=== PATIENT | male | born 1985 | race African-American/Black ===

== ENCOUNTER 2019-07-05 08:01 | Outpatient (RCR) | payer OTHER, SELFPAY ==
--- NOTE | 2019-06-07 17:06 | WPDWOUNDNOTE ---
Wound Care Note Date/Time: 06/07/19 17:06 Wound history: Right anterior tibial open wound probably from insect bite although exact etiology unclear. Has been using silver gel and Mepilex with good improvement. Mepilex was pretty stuck to the wound today. Wound depth: Very superficial Surrounding tissue appearance: Healthy Percentage granulation tissue: 100 Dressings: Start just putting Band-Aid over the wound and stopping the silver gel. Hopefully this will scab and heal. Will recheck in 3 weeks. Assessment and Plan Assessment and plan (1) Open wound knee/leg with tendon involvment: Code(s): S81.009A - Unspecified open wound, unspecified knee, initial encounter; S81.809A - Unspecified open wound, unspecified lower leg, initial encounter; S91.009A - Unspecified open wound, unspecified ankle, initial encounter Status: Acute Assessment and Plan: Continues to improve slowly. Now is just 5-6 mm in size and no depth at all. Start using a Band-Aid dressing and try to allow this to scab over and heal. Recheck again in wound clinic in 3 weeks.
== END 2019-08-27 07:57 | disposition home or self-care (01) ==
LOC: ANHWOC 08:01
PROVIDERS: PCP Emergency Medicine; Visit Provider Surgery
DX: S81.801D Unspecified open wound, right lower leg, subsequent encounter (principal)
CPT/HCPCS: 99212; G0463

== ENCOUNTER 2019-08-20 13:48 | Outpatient (CLI) | payer OTHER, SELFPAY ==
--- NOTE | ~2019-08-20 | CT_ITS ---
EXAMINATION: CT ankle RT wo con, CT foot RT wo con DATE: 08/20/2019 14:33 INDICATION: Right foot and ankle pain TECHNIQUE: High resolution computed tomography (CT) of the right foot and ankle was performed without intravenous contrast. Additional sagittal and coronal reconstructions were performed. Automated expo sure control and iterative reconstruction technique were employed. The dose-length product was 408.07 mGy-cm. COMPARISON: Radiographs dated 08/15/2019 FINDINGS: Bone alignment is normal at the right foot and ankle. No fracture. Mild tibiotalar osteoarthritis wit h anterior predominant nonuniform joint space narrowing. There is mild subarticular lucency and scler osis along the posterolateral margin of the talar dome which could be related to overlying chondromal acia or a developing osteochondral lesion. Additional mild osteoarthritis at the navicular cuneiform and first metatarsophalangeal joints. Minimal osteoarthritis at the tarsal metatarsal joints. No elza ical erosions. Soft tissues are unremarkable. No ankle joint effusion. IMPRESSION: 1. Mild polyarticular osteoarthritis including at the tibiotalar joint and there is suggestion of pos sible developing osteochondral lesion at the posterolateral rim of the talar dome. Reviewed, dictated and finalized at location A. IT PRODUCT ANALYST IMPRESSION: 1. Mild polyarticular osteoarthritis including at the tibiotalar joint and ther e is suggestion of possible developing osteochondral lesion at the posterolater al rim of the talar dome.
== END 2019-08-20 13:49 | disposition home or self-care (01) ==
PROVIDERS: PCP Emergency Medicine; Visit Provider Orthopaedic Surgery
DX: M19.071 Primary osteoarthritis, right ankle and foot (principal)
CPT/HCPCS: 73700

== ENCOUNTER 2019-10-04 08:00 | Outpatient (RCR) | payer OTHER, SELFPAY ==
--- NOTE | 2019-10-04 09:20 | PTOPEVAL ---
PHYSICAL THERAPY EVALUATION AND PLAN OF CARE 10-04-2019 The PT evaluation was completed and his plan of treatment is established for 2x/week for 4 weeks. Thank you for referring Nura to [facility]. Please review, sign, date and return this plan of care [facility]. I agree with and certify that the following plan of care is medically necessary. Referring Physician Date Attending Provider: Christopher Munoz MD *PT Outpatient Evaluation Start: 10/04/19 08:15 Document 10/04/19 08:05 ALEXY (Rec: 10/04/19 09:13 ALEXY [id number]) Outpatient Past Medical History Neurological History Hx Neurological Disorders No Significant History Cardiovascular History Hx Hypertension Yes: monitoring little high Respiratory History Hx Respiratory Disorders No Significant History Gastrointestinal History Hx Gastrointestinal Disorders No Significant History Genitourinary History Hx Genitourinary Disorders No Significant History Musculoskeletal History Hx Back Pain Yes: chronic back pain/issues intermittent pain Hx Other Musculoskeletal Disorders Yes: this incident of R ankle pain; flat feet Hematological History Hx Anemia Yes: slight, to have EDG to check it Endocrine History Hx Endocrine Disorders No Significant History HEENT History Hx HEENT Disorders No Significant History Psychosocial History Hx Anxiety Yes Other History Hx Other Surgeries Yes: R anterior castillo spider bite with debride tissue Evaluation Information Problem Diagnosis R ankle/foot pain, tarsal coalition Onset 05-01-19 Subjective Information walking and turning, ankle Query Text:As Reported By Patient/ squishy ; had CT scan; tried Family sera wrap- made worse; wearing high top boot helps pain; unable to recall any trauma or injury to foot/ankle, no strains, falls; Diagnostic Tests Other Tests For This Problem Yes: CT-fibrous coalition,deg changes:calcan-navic,talar-navic,calc-cuboid Previous Treatments Previous Treatments For This Problem no PT for ankle/foot Prior Level of Function Activity Level (Last 3 Months) 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
--- NOTE | 2019-10-23 11:25 | PCPTNOTE ---
PHYSICAL THERAPY DISCHARGE 10-23-2019 Attending Provider: Christopher Munoz MD Patient:Nura Stewart Date of :1985 Mr. Stewart has not returned for any further treatments since the PT evaluation on 10/04/2019, for the diagnosis of R ankle/foot pain. Therefore he will be discharged at this time. The goals were not addressed. Thank you for [facility] Nura to [facility]. Please review, sign, date and return this discharge summary NAS. I have been updated about the patient's current status and I agree with discharge from the above service at this time. Referring Physician Date
== END 2019-12-18 12:57 | disposition home or self-care (01) ==
LOC: ANHPT 08:00
PROVIDERS: PCP Emergency Medicine; Visit Provider Orthopaedic Surgery
DX: M25.571 Pain in right ankle and joints of right foot (principal); M79.671 Pain in right foot
CPT/HCPCS: 97110; 97161

== ENCOUNTER 2020-05-26 13:45 | Outpatient (RCR) | payer OTHER, SELFPAY ==
--- NOTE | 2020-03-19 13:29 | PTOPEVAL ---
PHYSICAL THERAPY EVALUATION AND PLAN OF CARE 03-19-2020 Thank you for referring Nura Stewart to [facility].? He is scheduled to be seen for therapy? 2 x/week for 4 weeks. Please review, sign, date and return this plan of care NAS. I agree with and certify that the following plan of care is medically necessary. Referring Physician Date Attending Provider: Christopher Munoz MD *PT Outpatient Evaluation Start: 03/19/20 12:37 Document 03/19/20 12:30 ALEXY (Rec: 03/19/20 13:29 ALEXY [id number]) Outpatient Past Medical History Past Medical History Source of Past Medical History Patient Neurological History Hx Neurological Disorders No Significant History Cardiovascular History Hx Hypertension Yes: not taking any meds Respiratory History Hx Respiratory Disorders No Significant History Gastrointestinal History Hx Gastrointestinal Disorders No Significant History Genitourinary History Hx Genitourinary Disorders No Significant History Musculoskeletal History Hx Back Pain Yes: chronic back pain/issues intermittent pain Hx Other Musculoskeletal Disorders Yes: this incident of R ankle pain; flat feet Hematological History Hx Anemia Yes: slight, recent bloodwork to check it Endocrine History Hx Endocrine Disorders No Significant History HEENT History Hx HEENT Disorders No Significant History Psychosocial History Hx Anxiety Yes Other History Hx Other Surgeries Yes: R anterior castillo spider bite with debride tissue Evaluation Information Problem Diagnosis R foot pain, plantar faciitis, achilles tendon Onset Apr 2019 Subjective Information no trauma or injury to ankle/ Query Text:As Reported By Patient/ foot; just started hurting; Family Diagnostic Tests X-Rays For This Problem Yes Other Tests For This Problem Yes: CT scan in September Previous Treatments Previous Treatments For This Problem had PT eval, then coronavirus started and he did not come for treatment Prior Level of Function Activity Level (Last 3 Months) 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
--- NOTE | 2020-04-17 09:22 | PCPTNOTE ---
pt did not show for today's reeval. Called pt, he stated forgot about appt ; stated he was feeling fine, went to work yesterday then pain hit again with standing and walking; he called dr and has flanagan 04-23-20 to see Discussed with him at dr flanagan, if Dr Munoz wants him to continue PT, to get a new script and call for reeval appt. He voiced understanding.
--- NOTE | 2020-05-07 16:18 | PTOPEVAL ---
PHYSICAL THERAPY REEVALUATION AND UPDATED PLAN OF CARE 05-07-2020 Refer to clinical summary below for Nura's status, compared to the initial evaluation. Thank you for referring Nura Stewart to [facility]. He is scheduled to continue therapy? 2x/week for 4 weeks. Please review, sign, date and return this updated plan of care NAS. I agree with and certify that the following plan of care is medically necessary. Referring Physician Date Attending Provider: Christopher Munoz MD *PT OutpatientRe- Evaluation Document 05/07/20 15:35 ALEXY (Rec: 05/07/20 16:17 ALEXY [id number]) Subjective Information Nura reports saw dr 04-23-20: Query Text:As Reported By Patient/ dr said to continue PT, Family possibility of surgery may be considered; have not worked since Apr 16, was doing better since not working; when walk on uneven ground it irritates it; Pain Assessment Timing of Pain Assessment Timing of Pain Assessment Assessment Pain Scale Pain Scale Used Numeric (1 - 10) Self Report Pain Assessment Right Foot/Feet Reported Pain Level 0 Pain Description Sharp Radicular Pain Location sharp pain at lateral ankle; arch of foot- aching; Pain Frequency Acute Lowest Pain Intensity 0 Greatest Pain Intensity 8 Pain Aggravating Factors Walking,Weight Bearing/ Standing Other Pain Aggravating Factors walking few minutes only; increase as day goes on; Pain Behaviors Anxious,Grimacing,Guarding Pain Score Pain Score 0: Self Report Additional Pain Score Comments have not worked, trying to stay off foot; when working was about 3 hour tolerance standing/walking; Interventions Used Interventions Used By Clinicians Exercise Pain Relief Interventions Used By Inactivity/Rest Patient Other Alleviating Interventions ankle circles and stretching; not taking any pain meds;ankle brace-velcro straps Lower Extremity Range of Motion General Lower Extremity Range of Motion Gross Lower Extremity Range of Motion long sitting R ankle AROM: DF Comments 2'; PF 40';inversion 15'; eversion 0'; no pain with active motion ankle; pain with passive stretch of eversion; toe flexion/extension full ROM
--- NOTE | 2020-05-26 14:20 | PTOPEVAL ---
PHYSICAL THERAPY DISCHARGE 05-26-2020 Refer to the clinical summary below for Mr. Stewart's discharge information. Thank you for referring Nura Stewart to [facility].? Please review, sign, date and return this discharge NAS. I agree with and certify that the following plan of care is medically necessary. Referring Physician Date Attending Provider: Christopher Munoz MD *PT Outpatient Discharge Document 05/26/20 13:40 ALEXY (Rec: 05/26/20 14:20 ALEXY [id number]) Subjective Information Nura reports: ankle is Query Text:As Reported By Patient/ better, but afraid if walking Family more, it will start hurting again; now, have just been walking around the house- not working right now; have been doing stretches at home; looking to buy some more supportive shoes when can get some money for them; when walking, is wearing the ankle support brace; feels at work, may have problems on climbing ladders; not sure when his dr appt is-- sometime soon; He agrees to discharge from PT at this time. Pain Assessment Timing of Pain Assessment Timing of Pain Assessment Assessment Pain Scale Pain Scale Used Numeric (1 - 10) Self Report Pain Assessment Right Foot/Feet Reported Pain Level 0 Pain Description Tightness Radicular Pain Location anterior and lateral ankle; medial- mid arch of foot; Pain Frequency Chronic Lowest Pain Intensity 0 Greatest Pain Intensity 7 Other Pain Aggravating Factors lie on L side- educated on side lying with pillow between LE's Pain Behaviors Anxious,Guarding Pain Score Pain Score 0: Self Report Interventions Used Interventions Used By Clinicians Exercise Pain Relief Interventions Used By Inactivity/Rest Patient Other Alleviating Interventions stretching; warm water helps; wearing ankle brace Lower Extremity Range of Motion General Lower Extremity Range of Motion Gross Lower Extremity Range of Motion long sitting R ankle AROM: DF Comments 8'; PF 45'; inversion 30'- with slight pain reported at lateral malleoli; eversion to 0'; Lower Extremity Muscle Strength Testing Ge
== END 2020-05-27 10:07 | disposition home or self-care (01) ==
LOC: ANHPT 13:45
PROVIDERS: PCP Emergency Medicine; Visit Provider Orthopaedic Surgery
DX: M79.671 Pain in right foot (principal); M72.2 Plantar fascial fibromatosis
CPT/HCPCS: 97022; 97035; 97110; 97140; 97161

== ENCOUNTER 2021-02-22 02:15 | Emergency (ER) | payer OTHER, SELFPAY ==
[2021-02-22] VITALS (16 sets, daily range): BP systolic 117–149; BP diastolic 72–113; PULSE 63–86; RESP 12–20; TEMP 36.2–36.6; O2SAT 96–100
--- NOTE | 2021-02-22 03:59 | ED.ALLEREA ---
HPI - Allergic Reaction History of Present Illness HPI narrative: Upper lip swelling for the past few hours. No significant change since onset. No swelling of tongue, palate, or throat. No SOB, nausea, dizziness. The only new exposure he is aware of is an insecticide, but does not believe that he got any on himself. He does not take any medications Related Data Home Medications Medication Instructions Recorded Confirmed Saccharomyces boulardii [Florastor] 250 mg PO BID 05/16/19 12/31/20 Allergies Allergy/AdvReac Type Severity Reaction Status Date / Time No Known Allergies Allergy Unknown Verified 02/22/21 02:40 Review of Systems Review of Systems: All systems reviewed & are unremarkable except as noted in HPI and below PMFSH Past Medical History Medical History Anemia Anxiety Arthritis of foot, right, degenerative Dizziness Ear pain GERD (gastroesophageal reflux disease) Obesity Open wound knee/leg with tendon involvment Peroneal tendinitis of right lower extremity Tarsal coalition of right foot Family History Family History Mother Hypertension Sibling Hypertension Grandparent Family history of malignant neoplasm of breast Diabetes mellitus Father Family history of alcoholism Other Arthritis Social History Social History Alcohol intake: never Drinks per week: 0 Alcohol use details: Occasional Exam Const: General: healthy appearing, no acute distress and alert Nutritional Appearance: obese Orientation/consciousness: patient oriented x3 HENMT: General nose exam: Normal external nose present Mouth: Yes Normal oral and palatal mucosa present Teeth and gingiva: dentition normal Throat: posterior oropharynx normal Other: Moderate upper lip swelling Eyes: Pupils: Equal, round and reactive pupils present EOM: EOMs intact bilaterally Neck: Neck: normal visual inspection and no lymphadenopathy Resp: Effort & Inspection: normal respiratory effort Auscultation: clear to auscultation bilaterally, no rales, no rhonchi and no wheezes Cardio: Jugular venous distension: no JVD Rate: regular rate Rhythm: regular rhythm Heart sounds: no murmurs Skin: General skin exam: normal color Neuro: General: patient oriented x3 and moves all extremities Speech: normal speech Extrem: General: no edema Psych: Appearance: well kempt Affect: normal affect Course Course Emergency Course: Mild improvement after epi. Swelling has been stable for hours prior to arrival. Should be safe for outpatient treatment. Unclear cause Vital Signs Vital signs: Vital Signs Pulse Oximetry 100 02/22/21 02:24 Temperature 36.2 C L 02/22/21 05:06 Pulse Rate 70 02/22/21 05:06 Respiratory Rate 20 02/22/21 05:06 Blood Pressure 117/72 02/22/21 05:06 Pulse Oximetry 100 02/22/21 05:06 MDM - Allergic Reaction Medical Records Attestation: I reviewed the patient's medical records. Discharge Plan Discharge Clinical Impression: Allergic reaction Patient Disposition: Home, Self-Care Condition: Stable Instructions: General Allergic Reaction (ED) Prescriptions: New prednisone 20 mg tablet 40 mg PO BID Qty: 10 RF: 0 No Action Florastor 250 mg Capsule 250 mg PO BID RF: 0 Follow-up/Referrals: Miguel Carlson MD [Primary Care Provider] -
[2021-02-22] MEDS: diphenhydrAMINE HCl CAP 25 MG CAPSULE 50 MG PO (04:08)
[2021-02-22] MEDS: predniSONE 20 MG TABLET 40 MG PO (04:08)
[2021-02-22] MEDS: EPINEPHrine HCL INJ 1 MG/ML AMPUL 0.3 MG IM (04:09)
[2021-02-22] MEDS: FAMOTIDINE 20 MG TABLET PO (04:09)
== END 2021-02-22 05:09 | disposition home or self-care (01) ==
PROVIDERS: Emergency Provider Emergency Medicine; PCP Emergency Medicine
DX: T78.40XA Allergy, unspecified, initial encounter (principal); Z86.2 Personal history of diseases of the blood and blood-forming organs and certain disorders involving the immune mechanism; M19.071 Primary osteoarthritis, right ankle and foot; K21.9 Gastro-esophageal reflux disease without esophagitis; E66.9 Obesity, unspecified; Z68.43 Body mass index [BMI] 50.0-59.9, adult
CPT/HCPCS: 96372; 99283; A9270; J0171; J7512

== ENCOUNTER 2021-10-12 10:33 | Emergency (ER) | payer OTHER, SELFPAY ==
--- NOTE | 2021-10-12 10:40 | ED.SKABFB ---
HPI - Skin/Abscess/Foreign Bdy General Chief complaint: Nausea/Vomiting/Diarrhea Stated complaint: Stomach pain, Rash on Left leg Time Seen by Provider: 10/12/21 10:34 Source: patient and RN notes reviewed History of Present Illness HPI narrative: Patient is a 36-year-old male who presents the urgent care with several complaints. Patient states that last week he had food poisoning and he is having intermittent constipation and diarrhea since then. Patient states that the last couple days he has had a normal bowel movements . Patient states that after taking the stool softeners he was not feeling some lower abdominal cramping which is since subsided. Patient currently denies of any nausea, vomiting, diarrhea or constipation. Denies any recent fevers. Patient was not seen for his symptoms of food poisoning by a provider. Patient also reports of a lumpy area in his left upper leg. Patient states that it has gone down significantly now but there are a little areas you can see . Patient denies of any pain to the leg. Denies of any injury or swelling to the leg. Patient also reports of tinnitus in bilateral ears for the last week or so. Patient has not taken anything [id number] for his tinnitus. Currently denies of any headaches. No other acute complaints. No acute distress noted. Patient aware of the plan of care. Some parts of this dictation were generated by voice recognition software and may contain typographical and/or grammatical inaccuracies. Related Data Allergies Allergy/AdvReac Type Severity Reaction Status Date / Time No Known Allergies Allergy Unknown Verified 02/22/21 02:40 Review of Systems Review of Systems: CONSTITUTIONAL: Denies fever, chills, or sweats. EYES: Denies visual changes, redness, or discharge. ENT: Denies rhinorrhea, congestion, sore throat, or otalgia. Reports of ringing in bilateral ears CARDIOVASCULAR: Denies chest pain, palpitations, or edema. RESPIRATORY: Denies cough or dyspnea. GASTROINTESTINAL: Denies abdominal pain, nausea, vomiting, or diarrhea. GENITOURINARY: Denies dysuria or hematuria. SKIN: Reports of lumps to the left upper leg MUSCULOSKELETAL: Denies back pain, joint pain, or myalgia. NEUROLOGIC: Denies headache, numbness, or weakness. All other systems reviewed are negative, except as documented in HPI. [facility] Past Medical History Medical History Anemia Anxiety Arthritis of foot, right, degenerative Dizziness Ear pain GERD (gastroesophageal reflux disease) Obesity Open wound knee/leg with tendon involvment Peroneal tendinitis of right lower extremity Tarsal coalition of right foot Family History Family History Mother Hypertension Sibling Hypertension Grandparent Family history of malignant neoplasm of breast Diabetes mellitus Father Family history of alcoholism Other Arthritis Social History Social History Alcohol intake: never Drinks per week: 0 Alcohol use details: Occasional Comments At the time of my signature, I reviewed and agree with the nursing past medical, surgical, social, and family history. There is no relevant family history pertinent to the patient complaint. Exam Narrative: GENERAL: This is a well-nourished, well-developed patient, in no apparent distress. HEAD: normocephalic, atraumatic. EYES: PERRL. Sclera clear/white. Vision is grossly intact. EARS: External ears normal, auditory canals clear and without drainage, mild fluid noted by bilateral TMs without otitis. TMs normal without perforation. Hearing grossly intact. NOSE: External nose normal with no obvious nasal discharge, nares without redness, no rhinorrhea. THROAT: Mucous membranes moist NECK: Neck supple CARDIOVASCULAR: Regular rate and rhythm without murmurs, gallops, or rubs. RESPIRATORY: Cl
[2021-10-12 10:45] VITALS: BP 142/95; PULSE 102; RESP 16; O2SAT 100
== END 2021-10-12 11:10 | disposition home or self-care (01) ==
PROVIDERS: Emergency Provider Nurse Practitioner Family; PCP Emergency Medicine
DX: I83.92 Asymptomatic varicose veins of left lower extremity (principal); H93.13 Tinnitus, bilateral; K21.9 Gastro-esophageal reflux disease without esophagitis; E66.9 Obesity, unspecified; Z68.42 Body mass index [BMI] 45.0-49.9, adult; M19.079 Primary osteoarthritis, unspecified ankle and foot
CPT/HCPCS: 99211; G0463

== ENCOUNTER 2022-03-16 14:28 | Outpatient (RCR) | payer OTHER, SELFPAY ==
--- NOTE | 2022-03-16 16:06 | PTOPEVAL1 ---
Evaluation Information Assessment Status Evaluation Diagnosis R ankle pain Onset 4 years Subjective Information Pt reports in 2018 his ankle started to hurt without a known cause, and it went away on his own . Again, in 2019 this pain came back and has not gone away since. Pt completed therapy 2 years ago. He states as soon as he stopped therapy and went back to work his ankle started to feel worse again when he was just walking around. Pt reports intermittent compliance with his HEP for the last couple of years. He currently wears a compressing sleeve, an ankle brace, and a shoe inserts. Pt reports 0/10 pain at rest but 10/10 pain with ankle circles and weight bearing. Pt states when he does not work and is not on his feet, he has very limited pain. Reported Pain Level Pain Score 0: Self Report Assessment PT Clinical Summary Nura presents to therapy today for his initial evaluation with a diagnosis of peroneal tendinitis of his LLE. Today he demonstrates decreased active and passive motion of his R ankle in all motions despite reports of daily exercise. He also demonstrates almost no plantar arch in standing, with calcaneal eversion and subsequent forefoot supinatory twist. He reports no pain on days he does not work, and significant pain on days he has to stand for an extended period of time. It is recommended that pt get evaluated for a custom orthotic prior to returning to therapy. Upon receiving this, therapy is indicated to address strength and ROM deficits, gait deviations, and functional mobility limitations. Plan of Care PT Services Indicated Yes Treatment Frequency and pending receiving custom orthotic. then 1x/wk for Duration 4 wks These treatments will address the objective and functional deficits as defined above. The patient will be advanced safely and appropriately in order for the patient to progress towards his/her prior level of function. Additional exercises will be introduced and as well as a comprehensive home exercise program upon discharge, if needed, ?to ensure carryover of functional gains achieved in the clinic. This treatment plan has been reviewed and agreement upon by the patient.
--- NOTE | 2022-04-20 09:09 | PCPTNOTE ---
Called and left voicemail for patient to follow up on our discussed POC. Gave instructions for patient to follow up, if we do not hear back within a week he will be discharged.
--- NOTE | 2022-04-20 11:19 | PCPTNOTE ---
Pt returned called. He states he is still in the process of trying to get an orthotic.
--- NOTE | 2022-06-11 13:09 | PTOPDC ---
Assessment and note entered by Donell Scherer, PT, DPT Evaluation Information Assessment Status Discharge - Pt Not Present Diagnosis R ankle pain Onset 4 years Subjective Information Pt was initial evaluated on 03/16/22. He was instructed to follow up with getting a custom orthotic. Have not heard from the patient since with an update. Assessment PT Clinical Summary Nura will be discharged at this time. If he would like to return to therapy at a later time, he will need a new order. Plan of Care Treatment Frequency and to be discharged Duration
== END 2022-06-14 09:56 | disposition home or self-care (01) ==
LOC: ANHPT 14:28
PROVIDERS: PCP Emergency Medicine; Visit Provider Orthopaedic Surgery
DX: M76.11 Psoas tendinitis, right hip (principal)
CPT/HCPCS: 97110; 97161

== ENCOUNTER 2022-03-19 08:33 | Outpatient (CLI) | payer OTHER, SELFPAY | END 2022-03-19 08:34 | disposition home or self-care (01) | LOC: ANHCARD 08:34 | PROVIDERS: PCP Emergency Medicine; Visit Provider Emergency Medicine | DX: R07.9 Chest pain, unspecified (principal) | CPT/HCPCS: 93017; J2785 ==

== ENCOUNTER 2022-03-28 07:19 | Outpatient (CLI) | payer OTHER, SELFPAY ==
--- NOTE | ~2022-03-28 | XR_ITS ---
XR lumbar spine 2-3V DATE: 03/28/2022 07:36 INDICATION: Back muscle spasm. No injury. TECHNIQUE: AP, lateral views COMPARISON: 11/05/2014 lumbar spine FINDINGS: Normal alignment of the lumbar spine. There is moderate degenerative disc disease at L4-5 a nd L5-S1. There is minimal retrolisthesis at L4-5. No fracture or bone destruction or spondylolisthesis. The included lower thoracic and lumbar pedicles appear intact. Included portions of the sacroiliac joints are unremarkable. IMPRESSION: Moderate degenerative disc disease at L4-5 and L5-S1, minimal retrolisthesis at L4-5 Reviewed, dictated and finalized at location A. IMPRESSION: Moderate degenerative disc disease at L4-5 and L5-S1, minimal retro listhesis at L4-5
== END 2022-03-28 07:20 | disposition home or self-care (01) ==
PROVIDERS: PCP Emergency Medicine; Visit Provider Emergency Medicine
DX: M62.830 Muscle spasm of back (principal); M51.36 Other intervertebral disc degeneration, lumbar region; M51.37 Other intervertebral disc degeneration, lumbosacral region
CPT/HCPCS: 72100

== ENCOUNTER 2022-05-17 07:39 | Outpatient (CLI) | payer OTHER, SELFPAY ==
--- NOTE | 2022-06-01 17:00 | WPDHOMESLEEP ---
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 He denies awakening at night with heartburn, belching or cough. He occasionally snores but it is rarely loud enough that others complain. He rarely has trouble sleeping when he has a cold. He denies waking up gasping for air throughout the night. He rarely has breathing problems at night observed by himself or others. He denies sweating excessively at night. He rarely has heart palpitations or irregular heartbeats during the night. He rarely falls asleep during the day and never while driving. He denies cataplexy and hypnagogic / hypnopompic hallucinations. He denies having trouble at school or work due to sleepiness. He rarely feels unable to move while waking up or falling asleep. He denies feeling afraid going to sleep. He rarely has nightmares and rarely remembers his dreams. He frequently has thoughts racing through his night. He occasionally feels sad or depressed. He constantly has anxiety. He occasionally has muscular tension. He frequently notices parts of his body jerk. He denies kicking during the night. He frequently has crawling and aching feelings in his legs but denies leg pain during the night. Denies grinding his teeth during sleep awakening with morning jaw pain. He is constantly bothered by pain during the day but never awakened by pain during the night. He occasionally wakes up feeling stiff in the morning. He rarely wakes up with sore or achy muscles. He frequently wakes up with pain in the neck, spine or other joints. He goes to bed between 3-6 p.m. on weekdays and between 6-8 p.m. on the weekends. It takes him 10-20 minutes to fall asleep. He wakes up 3-4 times throughout the night for unknown reasons. When he awakens, he will try to go back to sleep or look it is phone is he is unable to. He is able to fall asleep within 20 minutes. He wakes up at 2:00 a.m. on both weekdays and weekends. He typically gets 6 hours of sleep per night. He will stay in bed for 30 minutes to an hour after waking up in the morning. He currently lives with his brother. He does work split shifts at work but is consistent. He does not consume any caffeinated beverages within 2 hours of bedtime. He does not engage in physical exercise before bedtime. He will read watch television before falling asleep. He denies taking naps in the afternoon or the evening. He drinks 1 caffeinated beverage per day. He denies tobacco, alcohol and recreational drug use. [facility] Past Medical History Medical History Anemia Anxiety Arthritis of foot, right, degenerative Dizziness Ear pain GERD (gastroesophageal reflux disease) Left hip pain Lumbar spine pain Obesity Open wound knee/leg with tendon involvment Peroneal tendinitis of right lower extremity Tarsal coalition of right foot Family History Family History Mother Hypertension Sibling Hypertension Grandparent Family history of malignant neoplasm of breast Diabetes mellitus Father Family history of alcoholism Other Arthritis Social History Social History Smoking status: Never smoker Alcohol intake: never Drinks per week: 0 Alcohol use details: Occasional Medications Home Medications Medication Instructions Recorded Confir
[2022-06-01 17:12] VITALS: BMI 47.9
== END 2022-05-18 10:30 | disposition home or self-care (01) ==
LOC: ANHCSM 07:41
PROVIDERS: PCP Emergency Medicine; Visit Provider Internal Medicine Cardiovascular Disease
DX: G47.10 Hypersomnia, unspecified (principal); R06.83 Snoring
CPT/HCPCS: 95806

== ENCOUNTER 2022-12-03 09:35 | Outpatient (CLI) | payer OTHER, SELFPAY | END 2022-12-03 09:36 | disposition home or self-care (01) | LOC: ANHAUDIO 09:37 | PROVIDERS: PCP Emergency Medicine; Visit Provider Otolaryngology | DX: H91.93 Unspecified hearing loss, bilateral (principal) | CPT/HCPCS: 92552; 92556; 92567 ==

== ENCOUNTER 2023-02-11 09:10 | Outpatient (CLI) | payer OTHER, SELFPAY ==
--- NOTE | 2023-03-04 19:12 | WPDSLEEPSTUD ---
Sleep Study Date of Study: 02/11/23 Ordering Provider: Miguel Carlson MD Interpreting Physician: Caroline Llanes MD Sleep Study Type: Split Polysomnogram Height: 1.73 m Weight: 147.418 kg Body Mass Index: 49.4 Neck Circumference (inches): 17 [place]: 7 Reason for Sleep Study Daytime hypersomnia *05/17/22 ? Home Sleep Test ? Overall AHI of 3.4 with desaturation to 91%. Sleep History Nura Stewart is a 37-year-old male with history of GERD, anxiety, anemia, and vitamin D deficiency who presented to the sleep lab for a split study for evaluation of daytime fatigue and short-term memory issues. He had a home sleep test 05/17/22 that was not diagnostic for obstructive sleep apnea. He denies awakening from sleep short of breath.? He denies awakening at night with heartburn, belching or coughing.? He occasionally snores, but it is rarely loud enough that others complain.? He rarely has trouble sleeping when he has a cold.? He denies waking up gasping for air throughout the night.? He rarely has breathing problems at night observed by himself or others.? He denies sweating excessively at night.? He rarely has heart palpitations or irregular heartbeats during the night.? He rarely falls asleep during the day and never while driving.? He denies vivid dreamlike scenes upon falling asleep or upon awakening.? He denies having daytime difficulties due to sleepiness.? He rarely feels unable to move while waking up or falling asleep.? He denies feeling afraid going to sleep.? He rarely has nightmares and rarely remembers his dreams.? He frequently has thoughts racing through his head. He occasionally feels sad or depressed.? He constantly has anxiety.? He occasionally has muscular tension.? He frequently notices parts of his body jerk.? He denies kicking during the night.? He frequently has crawling and aching feelings in his legs but denies leg pain during the night.? Denies grinding his teeth during sleep awakening with morning jaw pain.? He is constantly bothered by pain during the day but never awakened by pain during the night.? He occasionally wakes up feeling stiff in the morning.? He rarely wakes up with sore or achy muscles.? He frequently wakes up with pain in the neck, spine or other joints.? He goes to bed between 3-6 p.m. on weekdays and between 6-8 p.m. on the weekends.? It takes him 10-20 minutes to fall asleep.? He wakes up 3-4 times throughout the night for unknown reasons.? When he awakens, he looks at his phoen if he is not able to return to sleep. He is able to fall asleep within 20 minutes.? He wakes up at 2:00 a.m. on both weekdays and weekends.? He typically gets 6 hours of sleep per night.? He will stay in bed for 30 minutes to an hour after waking up in the morning.? He currently lives with his brother.? He does work split shifts at work but is consistent.? He denies taking naps in the afternoon or the evening. Habits: He drinks 1 caffeinated beverage per day.? He denies tobacco, alcohol and recreational drug use. [facility] Past Medical History Medical History Anemia Anxiety Arthritis of foot, right, degenerative Dizziness Ear pain GERD (gastroesophageal reflux disease) Left hip pain Lumbar spine pain Obesity Open wound knee/leg with tendon involvment Peroneal tendinitis of right lower extremity Tarsal coalition of right foot Family History Family History Mother Hypertension Sibling Hypertension Grandparent Family history of malignant neoplasm of breast Diabetes mellitus Father Family history of alcoholism Other Arthritis Social History Social History Social History: Caffeine-occasionally Smoking status: Never smoker Alcohol intake: never Drinks per week: 0 Substance use: never Substance use type: does not use Lack of Transportation:
[2023-03-04 19:14] VITALS: BMI 49.4
== END 2023-02-12 08:03 | disposition home or self-care (01) ==
LOC: ANHCSM 09:10
PROVIDERS: PCP Emergency Medicine; Visit Provider Emergency Medicine
DX: G47.30 Sleep apnea, unspecified (principal); R53.83 Other fatigue
CPT/HCPCS: 95811

== ENCOUNTER 2023-04-05 08:16 | Emergency (ER) | payer OTHER, SELFPAY ==
[2023-04-05 08:20] VITALS: BP 158/83; PULSE 80; RESP 16; TEMP 36.7; O2SAT 100
--- NOTE | 2023-04-05 08:33 | ED.GENADULT ---
HPI - General Adult General Chief complaint: Wound/Laceration Stated complaint: Laceration Time Seen by Provider: 04/05/23 08:23 History of Present Illness HPI narrative: 37-year-old male presented to the emergency department for evaluation of a laceration to his right distal anterior thigh. 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 Patient is unsure of his last tetanus. Related Data Home Medications Medication Instructions Recorded Confirmed No Home Medications 01/13/22 01/03/23 Allergies Allergy/AdvReac Type Severity Reaction Status Date / Time No Known Allergies Allergy Unknown Verified 04/05/23 08:55 Review of Systems Review of Systems: All systems reviewed & are unremarkable except as noted in HPI and below PMFSH Past Medical History Medical History Anemia Anxiety Arthritis of foot, right, degenerative Dizziness Ear pain GERD (gastroesophageal reflux disease) Left hip pain Lumbar spine pain Obesity Open wound knee/leg with tendon involvment Peroneal tendinitis of right lower extremity Tarsal coalition of right foot Family History Family History Mother Hypertension Sibling Hypertension Grandparent Family history of malignant neoplasm of breast Diabetes mellitus Father Family history of alcoholism Other Arthritis Social History Social History Social History: Caffeine-occasionally Smoking status: Never smoker Alcohol intake: never Drinks per week: 0 Substance use: never Substance use type: does not use Lack of Transportation: No Lack of Food: Never True Current Housing: I Have Housing Concerned About Future Housing: No Difficulty Paying Gas/Electric Bills: No Difficulty Paying for Meds: No Currently Unemployed: No Education: High School Diploma/GED Difficulty w/ Childcare or Family Care: No Living arrangements: with family Gender identity (if verbalized by the patient): Male Exam Narrative: APPEARANCE: Well appearing, no pain, no distress, well-nourished. HEAD: normocephalic, atraumatic. EYES: PERRLA/EOMI, conjunctivae clear. NOSE: Normal no drainage NECK: Supple. No adenopathy, no masses. RESPIRATORY: Airway patent, respirations nonlabored. Clear to auscultation bilaterally, no rales, rhonchi, wheezing. CARDIOVASCULAR: Regular rate and rhythm without murmurs rubs or gallops. ABDOMINAL: Soft, nontender, nondistended, normal bowel sounds MUSCULOSKELETAL: Moves all extremities. Strength/ROM intact, No edema, No calf tenderness. NEURO: Alert. Cranial nerves II through XII intact. Grossly intact SKIN:-5 cm laceration to right thigh Course Course Emergency Course: 37-year-old male presented emergency department for evaluation of a laceration to his right thigh. Patient's tetanus was updated. Patient's laceration was repaired as described in the procedure note. All question concerns were addressed and patient was comfortable with the plan for discharge and close follow-up. Vital Signs Vital signs: Vital Signs Temperature 98.1 F 04/05/23 08:20 Pulse Rate 80 04/05/23 08:20 Respiratory Rate 16 04/05/23 08:20 Blood Pressure 158/83 H 04/05/23 08:20 Pulse Oximetry 100 04/05/23 08:20 Temperature 98.1 F 04/05/23 08:20 Pulse Rate 86 04/05/23 09:50 Respiratory Rate 18 04/05/23 09:50 Blood Pressure 148/82 H 04/05/23 09:50 Pulse Oximetry 100 04/05/23 09:50 Procedures Laceration Laceration 1: Date: 04/05/23 Time: 09:18 Site: lower extremity Side (If applicable): right Size (cm): 5.5 Description: linear Depth: simple, single layer Local Anesthetic: lidocaine 1% and with epi Amount of anesthesia used (mL): 5 Pre-repair: wound explored, irrigated and irrigated extensive
[2023-04-05] MEDS: LIDO 1%/EPINEPHRINE 1:100,000 20 ML VIAL INFILTRATE (08:47)
[2023-04-05] MEDS: TETANUS,DIPHTHERIA,AC PERTUSSIS ADULT (0.5 ML) BOOSTRIX IM (08:47)
[2023-04-05 09:50] VITALS: BP 148/82; PULSE 86; RESP 18; O2SAT 100
== END 2023-04-05 09:58 | disposition home or self-care (01) ==
LOC: ANHED 09:21
PROVIDERS: Emergency Provider Emergency Medicine; PCP Emergency Medicine
DX: S71.111A Laceration without foreign body, right thigh, initial encounter (principal); Z23 Encounter for immunization; W27.8XXA Contact with other nonpowered hand tool, initial encounter
CPT/HCPCS: 12002; 90471; 90715; 99282

== ENCOUNTER 2023-04-08 09:41 | Emergency (ER) | payer OTHER, SELFPAY ==
--- NOTE | 2023-04-08 09:50 | ED.SKABFB ---
HPI - Skin/Abscess/Foreign Bdy General Stated complaint: Stitches on right leg Source: patient and RN notes reviewed History of Present Illness HPI narrative: 37 yo M presents to urgent care with requests for a wound check. 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 Pt states today, he thought the medial end of the wound looked a little swollen and was draining liquid. Pt has been placing antibiotic ointment on the wound at home. Pt also reporting two new blisters have formed to the same thigh within the last few days. Denies working outside or any contact with poison bo or something of the like. Pt reports the blister areas have itched. Related Data Home Medications Medication Instructions Recorded Confirmed No Home Medications 01/13/22 04/08/23 Allergies Allergy/AdvReac Type Severity Reaction Status Date / Time No Known Allergies Allergy Unknown Verified 04/08/23 09:51 Review of Systems Review of Systems: CONSTITUTIONAL: Denies fever, chills, or sweats. EYES: Denies visual changes, redness, or discharge. ENT: Denies otalgia and sore throat CARDIOVASCULAR: Denies chest pain, palpitations, or edema. RESPIRATORY: Denies cough or dyspnea. GASTROINTESTINAL: Denies abdominal pain, nausea, vomiting, or diarrhea. GENITOURINARY: Denies dysuria or hematuria. SKIN: wound to right thigh MUSCULOSKELETAL: Denies back pain, joint pain, or myalgia. NEUROLOGIC: Denies headache, numbness, or weakness. Pertinent positives per HPI. [facility] Past Medical History Medical History Anemia Anxiety Arthritis of foot, right, degenerative Dizziness Ear pain GERD (gastroesophageal reflux disease) Left hip pain Lumbar spine pain Obesity Open wound knee/leg with tendon involvment Peroneal tendinitis of right lower extremity Tarsal coalition of right foot Family History Family History Mother Hypertension Sibling Hypertension Grandparent Family history of malignant neoplasm of breast Diabetes mellitus Father Family history of alcoholism Other Arthritis Social History Social History Social History: Caffeine-occasionally Smoking status: Never smoker Alcohol intake: never Drinks per week: 0 Substance use: never Substance use type: does not use Lack of Transportation: No Lack of Food: Never True Current Housing: I Have Housing Concerned About Future Housing: No Difficulty Paying Gas/Electric Bills: No Difficulty Paying for Meds: No Currently Unemployed: No Education: High School Diploma/GED Difficulty w/ Childcare or Family Care: No Living arrangements: with family Gender identity (if verbalized by the patient): Male Comments At the time of my signature, I reviewed and agree with the nursing past medical, surgical, social, and family history. There is no relevant family history pertinent to the patient complaint. Exam Narrative: GENERAL: This is a well-nourished, well-developed patient, in no apparent distress. HEAD: normocephalic, atraumatic. EYES: Sclera clear/white. Vision is grossly intact. EARS: External ears normal, auditory canals clear and without drainage. Hearing grossly intact. NOSE: External nose normal with no obvious nasal discharge, nares without redness, no rhinorrhea. THROAT: Mucous membranes moist, posterior pharynx clear. NECK: Neck supple, non-tender without lymphadenopathy, masses or thyromegaly. CARDIOVASCULAR: Regular rate RESPIRATORY: No respiratory distress SKIN: well-healing wound to right anterior thigh with [address] no surrounding erythema or purulent drainage. 2 clear colored blisters noted to more proximal right thigh with no drainage or surrounding erythema. NEURO: awake, alert, and oriented to person, [place]
[2023-04-08 09:53] VITALS: BP 138/82; PULSE 84; RESP 16; TEMP 36.4; O2SAT 100
== END 2023-04-08 10:03 | disposition home or self-care (01) ==
PROVIDERS: Emergency Provider Nurse Practitioner Family; PCP Emergency Medicine
DX: Z48.01 Encounter for change or removal of surgical wound dressing (principal); M19.071 Primary osteoarthritis, right ankle and foot; K21.9 Gastro-esophageal reflux disease without esophagitis; E66.9 Obesity, unspecified; Z68.43 Body mass index [BMI] 50.0-59.9, adult
CPT/HCPCS: 99212; G0463

== ENCOUNTER 2023-12-02 08:41 | Emergency (ER) | payer OTHER, SELFPAY ==
[2023-12-02 08:51] VITALS: BP 141/94; PULSE 90; RESP 16; TEMP 37.1; O2SAT 99
--- NOTE | 2023-12-02 08:59 | ED.BACK ---
HPI - Back Pain/Injury General Chief Complaint: Back Pain/Injury Stated Complaint: Back Pain Time Seen by Provider: 12/02/23 08:59 Source: patient, RN notes reviewed and old records reviewed Mode of arrival: ambulatory Limitations: no limitations History of Present Illness HPI Narrative: 38 year old male presents to [facility] care with complaints of 2-3 day history of right sided mid upper lumbar back pain and spasms which at times radiates to the right hip. Patient reports no known injury or pain with ambulation or movement, states pain is mainly when he lays down. he states that he was seen in June for back pain and given Diclofenac and muscle relaxers and patient has bottles with him with several doses in bottles. Patient reports that he tried a muscle relaxer and some aspirin for his discomfort with minimal pain decrease stated. Patient reports that he has been told in the past that he has arthritis of his spine. MD elicited complaint: back pain Pertinent past history: prior back pain Onset (ago): day(s) (2-3) Similar Symptoms Previously: Yes Quality: aching and spasming Location: lumbar spine (upper mid right) Treatments prior to arrival: ASA and other (muscle relaxer) Related Data Home Medications Medication Instructions Recorded Confirmed No Home Medications 01/13/22 12/02/23 Allergies Allergy/AdvReac Type Severity Reaction Status Date / Time No Known Allergies Allergy Unknown Verified 12/02/23 08:49 Review of Systems Review of Systems: CONSTITUTIONAL: Denies fever, chills, or sweats. CARDIOVASCULAR: Denies chest pain, palpitations, or edema. RESPIRATORY: Denies cough or dyspnea, reports no pain with his breathing or with deep inspiration. GASTROINTESTINAL: Denies abdominal pain, nausea, vomiting, or diarrhea. GENITOURINARY: Denies dysuria or hematuria. SKIN: Denies rash or itching. MUSCULOSKELETAL: Reports right mid upper lumbar back pain or myalgia. NEUROLOGIC: Denies headache, numbness, or weakness. All systems reviewed & are unremarkable except as noted in HPI and below [facility] Past Medical History Medical History (Updated 12/02/23 @ 11:17 by Delfina Gonzales NP) Anemia Anxiety Arthritis of foot, right, degenerative Dizziness Ear pain GERD (gastroesophageal reflux disease) Left hip pain Lumbar spine pain Obesity Open wound knee/leg with tendon involvment Peroneal tendinitis of right lower extremity Tarsal coalition of right foot Surgical History Surgical History (Updated 12/02/23 @ 11:17 by Delfina Gonzales NP) S/P excisional debridement spider bite right lower anterior leg Family History Family History Mother Hypertension Sibling Hypertension Grandparent Family history of malignant neoplasm of breast Diabetes mellitus Father Family history of alcoholism Other Arthritis Social History Social History Social History: Caffeine-occasionally Smoking status: Never smoker Alcohol intake: never Drinks per week: 0 Substance use: never Substance use type: does not use Lack of Transportation: No Lack of Food: Never True Current Housing: I Have Housing Concerned About Future Housing: No Difficulty Paying Gas/Electric Bills: No Difficulty Paying for Meds: No Currently Unemployed: No Education: High School Diploma/GED Difficulty w/ Childcare or Family Care: No Living arrangements: with family Gender identity (if verbalized by the patient): Male Comments At time of signature, agree with nursing past medical, surgical, social and family history. There is no relevant family history pertinent to the presenting complaint Exam Narrative: GENERAL: Well-appearing, well-nourished, morbidly obese and in no acute distress. HEAD: Normocephalic, atraumatic. EYES: PERRLA and EOMI. NECK: Supple. No lymphadenopathy. CHEST: C
== END 2023-12-02 09:28 | disposition home or self-care (01) ==
PROVIDERS: Emergency Provider Registered Nurse; PCP Emergency Medicine
DX: M54.50 Low back pain, unspecified (principal); K21.9 Gastro-esophageal reflux disease without esophagitis; E66.9 Obesity, unspecified; Z68.43 Body mass index [BMI] 50.0-59.9, adult; M19.071 Primary osteoarthritis, right ankle and foot
CPT/HCPCS: 99212; G0463

== ENCOUNTER 2023-12-12 03:19 | Emergency (ER) | payer OTHER, SELFPAY ==
[2023-12-12] VITALS (9 sets, daily range): BP systolic 123–168; BP diastolic 72–98; PULSE 81–100; RESP 11–17; TEMP 36.6; O2SAT 97–100
--- NOTE | ~2023-12-12 | CT_ITS ---
EXAMINATION: CT abdomen pelvis wo con DATE: 12/12/2023 09:17 INDICATION: Right flank pain. TECHNIQUE: Computed tomography (CT) of the abdomen and pelvis was performed without intravenous contr ast. Automated exposure control and iterative reconstruction technique were employed. The dose-length product was 1742.86 mGy-cm. COMPARISON: None. FINDINGS: The visualized portions of the lung bases are clear without pneumonia or pleural effusion. The heart size is normal. No pericardial effusion. The liver, gallbladder, spleen, pancreas, adrenal glands, and kidneys are normal. There is no urolithiasis. There are no dilated loops of bowel. The ap pendix is normal. There are no pathologically enlarged lymph nodes. There is no free intraperitoneal fluid. There is moderate thoracic and lumbar spondylosis. IMPRESSION: 1. No urolithiasis. Reviewed, dictated and finalized at location E. IMPRESSION: 1. No urolithiasis.
[2023-12-12] MEDS: KETOROLAC 15 MG/ML VIAL (*BKC) IV PUSH (07:27)
--- NOTE | 2023-12-12 07:31 | ED.BACK ---
HPI - Back Pain/Injury General Chief Complaint: Back Pain/Injury Stated Complaint: back pain, right hi Time Seen by Provider: 12/12/23 06:55 History of Present Illness HPI Narrative: Patient is a 38-year-old male who presents to the emergency department this morning complaining of right flank. Patient states the pain started a few days ago and initially he thought it was a pulled muscle, he did go to an urgent care and was told this is likely musculoskeletal. Patient states that however, he tried to use [id number] medications and perform stretches to alleviate the pain, however pain did not resolve. Patient called his primary care physician who was concerned that this could be a kidney stone. Patient decided to come to the emergency department for further evaluation. He denies any urinary symptoms. He admits that the right flank pain does sometimes radiate to his right lower abdomen. Denies any history of kidney stones. Does any fevers or chills at home. Patient denies lifting any heavy weights. No additional symptoms or concerns at this time Related Data Home Medications Medication Instructions Recorded Confirmed No Home Medications 01/13/22 12/02/23 Allergies Allergy/AdvReac Type Severity Reaction Status Date / Time No Known Allergies Allergy Unknown Verified 12/02/23 08:49 Review of Systems Review of Systems: All systems are reviewed and are negative unless stated otherwise in the HPI. [facility] Past Medical History Medical History Anemia Anxiety Arthritis of foot, right, degenerative Dizziness Ear pain GERD (gastroesophageal reflux disease) Left hip pain Lumbar spine pain Obesity Open wound knee/leg with tendon involvment Peroneal tendinitis of right lower extremity Tarsal coalition of right foot Surgical History Surgical History S/P excisional debridement spider bite right lower anterior leg Family History Family History Mother Hypertension Sibling Hypertension Grandparent Family history of malignant neoplasm of breast Diabetes mellitus Father Family history of alcoholism Other Arthritis Social History Social History Social History: Caffeine-occasionally Smoking status: Never smoker Alcohol intake: never Drinks per week: 0 Substance use: never Substance use type: does not use Lack of Transportation: No Lack of Food: Never True Current Housing: I Have Housing Concerned About Future Housing: No Difficulty Paying Gas/Electric Bills: No Difficulty Paying for Meds: No Currently Unemployed: No Education: High School Diploma/GED Difficulty w/ Childcare or Family Care: No Living arrangements: with family Gender identity (if verbalized by the patient): Male Exam Narrative: General: Alert, awake, afebrile, in no acute distress. HEENT: PERRL, no rhinorrhea, no post nasal drip, oropharynx clear. Cardiovascular: Regular rate and rhythm, no murmurs, rubs or gallops, no peripheral edema. Respiratory: Clear to auscultation bilaterally, no tachypnea, no wheezing, no rhonchi, no rubs, no respiratory distress. Abdomen: Soft, nontender, nondistended, no rebound, no guarding, no peritoneal signs. Musculoskeletal: No joint swelling or deformity, normal muscle tone, no midline tenderness to palpation over the lumbar spine. Skin: No rashes or petechia, no signs of infection. Neurological: Alert and oriented to person, place, and time. Follows all commands. No focal deficits, speech is clear and fluent. Course Vital Signs Vital signs: Vital Signs Temperature 97.9 F 12/12/23 03:22 Pulse Rate 100 12/12/23 03:22 Respiratory Rate 15 12/12/23 03:22 Blood Pressure 168/93 H 12/12/23 03:22 Pulse Oximetry 100 12/12/23 03:
[2023-12-12 07:36] LABS: Basophils Percent Auto 0.2 % (0.2-1.2); Eosinophils Absolute Auto 0.2 K/mm3 (0-0.3); Eosinophils Percent Auto 1.8 % (0-4.4); Hematocrit 41.5 % (42.0-52.0); Immature Granulocyte Absolute 0.04 K/mm3 (0.00-0.031); Immature Granulocyte Percent A 0.4 % (0-0.5); Lymphocytes Percent Auto 19.9 % (18.3-44.2); Mean Corpuscular HGB Conc 33.7 g/dl (32-36); Mean Corpuscular Volume 85.9 fl (80-100); Mean Platelet Volume 8.9 fl (7.4-10.4); Monocytes Absolute Auto 0.6 K/mm3 (0.1-0.6); Neutrophils Absolute Auto 6.9 K/mm3 (1.3-6.7); Neutrophils Percent Auto 71.7 % (45.5-73.1); Platelet Count Result 303 k/mm3 (150-375); Red Blood Count 4.83 M/mm3 (4.6-6.20); Red Cell Distribution Width 13.9 % (11.5-14.5); White Blood Count 9.6 K/mm3 (4.5-10.0)
[2023-12-12 08:19] LABS: Alanine Aminotransferase 26 U/L (6-50); Albumin Level 4.3 g/dL (3.5-5.1); Alkaline Phosphatase 53 U/L (38-126); Anion Gap 5 mmol/L (4-12); Aspartate Amino Transferase 29 U/L (17-59); Bilirubin,Total 0.8 mg/dL (0.2-1.3); Blood Urea Nitrogen 12 mg/dL (9-20); Calcium 8.9 mg/dL (8.4-10.2); Carbon Dioxide 29 mmol/L (22-30); Chloride 104 mmol/L (98-107); Estimated CRCL calculation 160 ml/min; Estimated Glomerular Filt Rate > 60; Glucose 94 mg/dL (65-110); Potassium 3.7 mmol/L (3.4-5.0); Sodium 138 mmol/L (137-145)
[2023-12-12 08:19] LABS: Appearance Urine Clear (Clear); Bilirubin Urine Negative (Negative); Blood Urine Negative (Negative); Color Urine Yellow (Yellow); Glucose Urine UA Negative (Negative); Ketones Urine Negative (Negative); Leukocyte Esterase Ur Negative LEU/UL (Negative); Nitrate Urine Negative (Negative); Protein Urine Negative (Negative); Specific Grav Ur 1.014 (1.001-1.035); Urobilinogen Urine 0.2 mg/dL (<2.0)
[2023-12-12 08:26] LABS: Add Urine Microscopic? NO
== END 2023-12-12 09:38 | disposition home or self-care (01) ==
PROVIDERS: Emergency Provider Emergency Medicine; PCP Emergency Medicine
DX: S39.011A Strain of muscle, fascia and tendon of abdomen, initial encounter (principal); D64.9 Anemia, unspecified; M19.071 Primary osteoarthritis, right ankle and foot; K21.9 Gastro-esophageal reflux disease without esophagitis; E66.9 Obesity, unspecified; Z68.43 Body mass index [BMI] 50.0-59.9, adult; X58.XXXA Exposure to other specified factors, initial encounter
CPT/HCPCS: 36415; 74176; 80053; 81003; 85025; 96374; 99284; J1885

== ENCOUNTER 2025-06-08 08:19 | Emergency (ER) | payer OTHER, SELFPAY ==
--- NOTE | 2025-06-08 08:34 | ED.BACK ---
HPI - Back Pain/Injury General Chief Complaint: Back Pain/Injury Stated Complaint: BACK PAIN History of Present Illness HPI Narrative: Chief Complaint Mid back issues and shoulder pain. Patient Summary The patient presents with mid back and shoulder pain, with recent exacerbation of symptoms starting yesterday. History of Present Illness The patient reports discomfort in the shoulder that initially began years ago during stretching exercises. It has not been a significant issue until yesterday. The patient describes occasional popping sensations in the shoulder but currently maintains full range of motion. The back pain began last year, attributed to muscle weakness and posture issues possibly due to weight. The patient describes the pain as being on the right side of the spine, worsening when lying down and accompanied by cracking and popping sounds during movement. The discomfort extends from the lower back to the upper spine. The patient has used Aleve for arthritis elsewhere but reports the back pain has been manageable until yesterday when exacerbated by laying down and stretching movements. The patient experiences muscle weakness potentially due to stretching without strengthening exercises. 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 Family History - Family history of diabetes. Review of Systems - Reports discomfort and occasional popping in the right shoulder. - Reports mid-back pain, especially when lying down or stretching. - Reports occasional GERD symptoms, concerned about potential interactions with NSAIDs. - Reports not having diabetes based on recent blood work. Vitals and Physical Exam Findings Not available. Assessment - Mid back pain likely muscular in nature. - Right shoulder discomfort with full range of motion. - Possible musculoskeletal issues related to occupational activity. Differential Diagnosis 1. Muscular strain or sprain 2. Arthritis of the spine 3. Musculoskeletal imbalance due to occupational activities Plan - Prescribe a short course of steroids for pain management. - Advise the use of topical treatments such as Icy Hot, Biofreeze, or Blue Emu. - Recommend NSAIDs like Aleve for pain, but caution due to potential stomach irritation. - Suggest Tylenol as an alternative due to GERD concerns. - Prescribe a muscle relaxer for nighttime use if necessary. - Encourage stretching and strengthening exercises for back muscles. - Provide information on [id number] pain management options. - Advise follow-up with primary care provider if symptoms persist or worsen. - Discuss the benefits of heat application over cold for muscle relaxation. Related Data Allergies Allergy/AdvReac Type Severity Reaction Status Date / Time No Known Allergies Allergy Unknown Verified 06/08/25 08:55 Review of Systems Review of Systems: All systems reviewed & are unremarkable except as noted in HPI and below Eyes: Eyes: Reports as per HPI ENT: Reports as per HPI Cardiovascular: Cardiovascular: Reports as per HPI Respiratory: Respiratory: Reports as per HPI Genitourinary: Genitourinary: Reports as per HPI Musculoskeletal: Musculoskeletal: Reports as per HPI Integumentary/Breasts: Skin/Breast: Reports as per HPI Neurologic: Reports as per HPI Psychiatric: Psychiatric: Reports as per HPI Endocrine: Endocrine: Reports as per HPI Hematologic/Lymphatic: Hematologic/Lymphatic: Reports as per HPI Allergic/Immunologic: Allergic/Immunologic: Reports as per HPI PMFSH Past Medical History Medical History Anemia Anxiety Arthritis of foot, right, degenerative Dizziness Ear pain GERD (gastroesophageal reflux disease) Left hip pain Lumbar spine pain Obesity Open wound knee/leg with tendon involvment Peroneal tendinitis of right lower extremity Tarsal coalition of right foot Surgical History Surgical History S/P excisional debridement spider bite right lower anterior leg Family History Family History Mother Hypertension Sibling Hypertension Grandparent Family history of malignant neoplasm of breast Diabetes mellitus Father Family history of alcoholism Other Arthritis Social History Social History Social History: Caffeine-occasionally Smoking status: Never smoker Alcohol intake: never Drinks per week: 0 Substance use: never Substance use type: does not use Lack of Transportation: No Lack of Food: Never True Current Housing: I Have Housing Concerned About Future Housing: No Difficulty Paying Gas/Electric Bills: No Difficulty Paying for Meds: No Currently Unemployed: No Education: High School Diploma/GED Difficulty w/ Childcare or Family Care: No Living arrangements: with family Gender identity (if verbalized by the patient): Male Exam Const: General: cooperative, healthy appearing, comfortable, no acute distress and well developed Orientation/consciousness: patient oriented x3 HENMT: Head: normal to inspection Eyes: General: appearance normal, both eyes and all related structures Resp: Effort & Inspection: normal respiratory effort and able to speak in complete sentences Auscultation: clear to auscultation bilaterally Cardio: Rate: regular rate Rhythm: regular rhythm Heart sounds: S1 normal heart sound present and S2 normal heart sound present Back/Spine/Pelvis: Thoracic/Lumbar Spine: thoracic and lumbar spine normal to inspection and paraspinal muscle tenderness on the right in the upper thoracic, in the mid thoracic and in the lower thoracic Skin: General skin exam: normal color Neuro: General: patient oriented x3 Cognition (Neuro): normal cognition Speech: normal speech Psych: Mental Status: mental status grossly normal Course Course Level of Care: Express Care Visit Vital Signs Vital signs: Vital Signs Temperature 97.8 F 06/08/25 08:38 Pulse Rate 94 06/08/25 08:38 Respiratory Rate 18 06/08/25 08:38 Blood Pressure 107/75 06/08/25 08:38 Pulse Oximetry 98 06/08/25 08:38 Oxygen Delivery Room Air 06/08/25 08:38 Temperature 97.8 F 06/08/25 08:38 Pulse Rate 94 06/08/25 08:38 Respiratory Rate 18 06/08/25 08:38 Blood Pressure 107/75 06/08/25 08:38 Pulse Oximetry 98 06/08/25 08:38 Oxygen Delivery Room Air 06/08/25 08:38 MDM - Back Pain/Injury MDM Narrative Medical decision making narrative: Assessment - Mid back pain likely muscular in nature. no red flag symtoms no spinal tenderness no injury no imaging needed at this time. - Right shoulder discomfort with full range of motion. - Possible musculoskeletal issues related to occupational activity. Differential Diagnosis 1. Muscular strain or sprain 2. Arthritis of the spine 3. Musculoskeletal imbalance due to occupational activities Plan - Prescribe a short course of steroids for pain management. - Advise the use of topical treatments such as Icy Hot, Biofreeze, or Blue Emu. - Recommend NSAIDs like Aleve for pain, but caution due to potential stomach irritation. - Suggest Tylenol as an alternative due to GERD concerns. - Prescribe a muscle relaxer for nighttime use if necessary. - Encourage stretching and strengthening exercises for back muscles. - Provide information on [id number] pain management options. - Advise follow-up with primary care provider if symptoms persist or worsen. - Discuss the benefits of heat application over cold for muscle relaxation. Differential Diagnosis Differential diagnosis: Likely thoracic back pain and other (shoulder pain) Medical Records Attestation: I reviewed the patient's medical records. Discharge Plan Discharge Clinical Impression: Rhomboid muscle pain, Mid back pain on right side Patient Disposition: Home Condition: Stable Instructions: Antibiotic Form, Back Pain (ED), Lower Back Exercises (ED) Additional Instructions: Use topicals per instructions. Tylenol as needed for pain while taking the steroids. May use naproxen after done with the steroids. Patient Language: Belarusian Prescriptions: New methylprednisolone [Medrol (Ayo)] 4 mg tablets,dose pack See Rx Instructions PO .COMPLEX Qty: 21 0RF Rx Instructions: orally per package directions methocarbamol 500 mg tablet 500 mg PO HS PRN (Reason: muscle spasm) Qty: 7 0RF naproxen 500 mg tablet 500 mg PO BID Qty: 20 0RF Rx Instructions: may start after Medrol dose pack Follow-up/Referrals: Miguel Carlson MD [Primary Care Provider, Family Practice] Time of Disposition: 09:20
[2025-06-08 08:38] VITALS: BP 107/75; PULSE 94; RESP 18; TEMP 36.6; O2SAT 98
== END 2025-06-08 09:41 | disposition home or self-care (01) ==
PROVIDERS: Emergency Provider Nurse Practitioner Family; PCP Emergency Medicine
DX: M54.6 Pain in thoracic spine (principal); K21.9 Gastro-esophageal reflux disease without esophagitis; E66.9 Obesity, unspecified; Z68.43 Body mass index [BMI] 50.0-59.9, adult; M19.071 Primary osteoarthritis, right ankle and foot
CPT/HCPCS: 99213; G0463